=== PATIENT | male | born 1955 | race Caucasian/White ===

== ENCOUNTER 2020-06-07 14:53 | Outpatient (CLI) | payer OTHER ==
--- NOTE | 2020-06-07 15:51 | RAD ---
RIGHT HIP 2 VIEWS: Date; 06/07/2020 HISTORY: Disability exam, right hip pain. FINDINGS/IMPRESSION: Mild degenerative changes are present. No fracture, dislocation, or bony destruction identified. POS: [facility]
== END 2020-06-07 14:54 | disposition home or self-care (01) ==
LOC: BICRAD 14:53
PROVIDERS: ATTEND Internal Medicine
DX: Z02.71 Encounter for disability determination (principal); M16.11 Unilateral primary osteoarthritis, right hip